=== PATIENT | male | born 1990 | race Two or more races ===

== ENCOUNTER 2023-01-23 19:22 | Inpatient (IN) | payer OTHER ==
[2023-01-23 20:29] VITALS: BMI 23.1
[2023-01-24] MEDS ORDERED: NICOTINE POLACRILEX 2 MG GUM BUC PRN (02:47)
[2023-01-24] MEDS ORDERED: NALOXONE HCL (KLOXXADO) 8 MG SPRAY NS PRN (02:47)
[2023-01-24] MEDS ORDERED: POLYETHYLENE GLYCOL (HEALTHYLAX) 3350 17 GM PACKET PO PRN (02:47)
[2023-01-24] MEDS ORDERED: cloNIDine HCL 0.1 MG TABLET PO PRN (02:47)
[2023-01-24] MEDS ORDERED: MAGNESIUM HYDROX 2400MG/30ML ORAL SUSPENSION 30 ML CUP PO PRN (02:47)
[2023-01-24] MEDS ORDERED: BENZONATATE 200 MG CAPSULE PO PRN (02:47)
[2023-01-24] MEDS ORDERED: guaiFENesin 600 MG TABLET.ER (FP) PO PRN (02:47)
[2023-01-24] MEDS ORDERED: methaDONE HCL 10 MG TABLET (FOR DETOX USE ONLY) PO ONE ×3 (02:47→10:00)
[2023-01-24] MEDS ORDERED: MAG HYDROX/AL HYDROX/SIMETH 30 ML UNIT-DOSE CUP PO PRN (02:47)
[2023-01-24] MEDS ORDERED: BENZOCAINE/MENTHOL (CHLORASEPTIC ) LOZENGE MM PRN (02:47)
[2023-01-24] MEDS ORDERED: IBUPROFEN 400 MG TABLET (FP) PO PRN (02:47)
[2023-01-24] MEDS ORDERED: DICYCLOMINE HCL 10 MG CAPSULE PO PRN (02:47)
[2023-01-24] MEDS ORDERED: BISMUTH SUBSALICYLATE 524 MG/30 ML PO PRN (02:47)
[2023-01-24] MEDS ORDERED: NALOXONE HCL 0.4 MG/ML VIAL IM PRN (02:47)
[2023-01-24] MEDS ORDERED: LOPERAMIDE HCL 2 MG CAPSULE PO PRN (02:47)
[2023-01-24] MEDS ORDERED: ONDANSETRON *ODT* 4 MG TABLET SL PRN (02:47)
[2023-01-24] MEDS: ACETAMINOPHEN 325 MG TABLET (FP) PO PRN ×2 (03:06→22:23)
[2023-01-24] MEDS: CLINDAMYCIN HCL 150 MG CAPSULE (FP) PO SCH ×4 (06:24→23:02)
[2023-01-24] MEDS: NICOTINE 21 MG/24 HOURS TOPICAL PATCH TD SCH (10:37)
[2023-01-24] MEDS: PRENATAL VITAMINS W/ FOLIC ACID TABLET (FP) PO SCH (10:37)
[2023-01-24] MEDS: IBUPROFEN 600 MG TABLET (FP) PO PRN ×2 (10:40→17:34)
[2023-01-24 11:58] LABS: HEMATOCRIT 33.9 % (35.4-49); HEMOGLOBIN 12.3 GM/dL (11.7-16.9); MCHC 36.2 g/dl (32.0-35.9); MEAN PLT VOLUME 8.6 fl (7.5-11.1); PLATELET COUNT 271 10^3/uL (134-434); RBC 4.08 M/mm3 (4.00-5.60); RDW 13.3 % (11.9-15.9); WHITE BLOOD COUNT 7.5 K/mm3 (4.0-10.0)
[2023-01-24 12:03] LABS: POTASSIUM 4.1 mmol/L (3.5-5.1)
[2023-01-24 12:10] LABS: CALCIUM 8.6 mg/dL (8.5-10.1)
[2023-01-24 12:11] LABS: BLOOD UREA NITROGEN 17.3 mg/dL (7-18)
[2023-01-24 12:14] LABS: CREATININE 0.6 mg/dL (0.55-1.3)
[2023-01-24 12:15] LABS: BILIRUBIN,TOTAL 0.5 mg/dL (0.2-1)
[2023-01-24] MEDS: MELATONIN 5 MG TABLETS PO SCH (22:22)
[2023-01-24] MEDS: QUEtiapine FUMARATE 100 MG TABLET (FP) PO SCH (22:22)
[2023-01-24] MEDS: THIAMINE HCL 100 MG TABLET (FP) PO SCH (22:23)
[2023-01-25] MEDS: CLINDAMYCIN HCL 150 MG CAPSULE (FP) PO SCH ×4 (06:30→23:01)
[2023-01-25] MEDS: NICOTINE 21 MG/24 HOURS TOPICAL PATCH TD SCH (10:05)
[2023-01-25] MEDS: PRENATAL VITAMINS W/ FOLIC ACID TABLET (FP) PO SCH (10:05)
[2023-01-25] MEDS: ACETAMINOPHEN 325 MG TABLET (FP) PO PRN (10:07)
[2023-01-25 16:00] LABS: PH,URINE 6.5 (5.0-8.0); URINE APPEARANCE CLEAR; URINE BILIRUBIN NEGATIVE (NEGATIVE); URINE COLOR YELLOW; URINE GLUCOSE (UA) NEGATIVE (NEGATIVE); URINE KETONE NEGATIVE (NEGATIVE); URINE LEUK ESTERASE NEGATIVE (NEGATIVE); URINE NITRITE NEGATIVE (NEGATIVE); URINE PROTEIN NEGATIVE (NEGATIVE)
[2023-01-25] MEDS: clonazePAM 0.5 MG ODT TABLETS SL PRN (17:50)
[2023-01-25] MEDS: IBUPROFEN 600 MG TABLET (FP) PO PRN (17:52)
[2023-01-25] MEDS: QUEtiapine FUMARATE 100 MG TABLET (FP) PO SCH (22:27)
[2023-01-25] MEDS: THIAMINE HCL 100 MG TABLET (FP) PO SCH (22:27)
[2023-01-25] MEDS: MELATONIN 5 MG TABLETS PO SCH (22:27)
[2023-01-26] MEDS: clonazePAM 0.5 MG ODT TABLETS SL PRN ×2 (06:03→12:58)
[2023-01-26] MEDS: CLINDAMYCIN HCL 150 MG CAPSULE (FP) PO SCH ×2 (06:03→12:57)
[2023-01-26] MEDS: IBUPROFEN 600 MG TABLET (FP) PO PRN (06:05)
[2023-01-26] MEDS ORDERED: methaDONE HCL 10 MG TABLET (FOR DETOX USE ONLY) PO ONE (10:00)
[2023-01-26] MEDS: NICOTINE 21 MG/24 HOURS TOPICAL PATCH TD SCH (10:41)
[2023-01-26] MEDS: PRENATAL VITAMINS W/ FOLIC ACID TABLET (FP) PO SCH (10:41)
[2023-01-26 13:21] VITALS: RESP 16
[2023-01-26 16:47] VITALS: BP 95/58; PULSE 79; TEMP 99.3
[2023-01-28] MEDS ORDERED: methaDONE HCL 10 MG TABLET (FOR DETOX USE ONLY) PO ONE (10:00)
== END 2023-01-26 16:13 | disposition left against medical advice (07) | DRG 770 ==
LOC: YASAS 19:22 → Y3N 01-24 03:26
PROVIDERS: ADMIT Allergy & Immunology; ATTEND Surgery
PROC: HZ2ZZZZ Detoxification Services for Substance Abuse Treatment (ICD-10-PCS; principal; 2023-01-24)
DX: F11.23 Opioid dependence with withdrawal (principal); F14.20 Cocaine dependence, uncomplicated; F12.20 Cannabis dependence, uncomplicated; F17.210 Nicotine dependence, cigarettes, uncomplicated; F31.9 Bipolar disorder, unspecified; F19.24 Other psychoactive substance dependence with psychoactive substance-induced mood disorder; F90.9 Attention-deficit hyperactivity disorder, unspecified type; G47.00 Insomnia, unspecified; L03.114 Cellulitis of left upper limb; S90.822A Blister (nonthermal), left foot, initial encounter; Y92.9 Unspecified place or not applicable
CPT/HCPCS: 36415; 73130-TC-LT-FY; 80053; 81003; 85027; 86780; 93005; 93010; 99282-25; C9803-CS; U0003; U0005